=== PATIENT | male | born 1970 | race Caucasian/White ===

== ENCOUNTER → 2016-12-01 | Outpatient (CLI) | payer MEDICAID, OTHER | LOC: PREOP 05:41 | PROVIDERS: ATTEND Surgery | DX: Z01.818 Encounter for other preprocedural examination (principal); K92.1 Melena ==

== ENCOUNTER 2019-06-23 17:49 | Emergency (ER) | payer SELFPAY ==
[~2019-06-23] VITALS: Ht 177 cm; Wt 152.0 kg
--- NOTE | 2019-06-23 18:57 | ED EENT ---
History of Present Illness General Chief Complaint: Dental Problems/Pain Stated Complaint: R SIDE FACIAL PAIN/DENTAL PAIN Nursing Triage Note: Patient ambulatory to [facility] with complaint of right jaw swelling x 1 week. Patient states he was seen at [facility] on Monday and given Amoxicillin. He states he got worse and on Monday returned where they gave him another antibiotic with no changes. Source: patient Exam Limitations: no limitations History of Present Illness Date Seen by Provider: Jun 23, 2019 Time Seen by Provider: 18:57 Allergies and Home Medications Allergies Coded Allergies: No Known Drug Allergies (Unverified , 06/23/19) Past Nouxwvp-Hyasbt-Zfayje Hx Patient Social History Alcohol Use: Denies Use Recreational Drug Use: No Smoking Status: Never a Smoker 2nd Hand Smoke Exposure: No Recent Foreign Travel: No Contact w/Someone Who Travel: No Recent Infectious Disease Expo: No Recent Hopitalizations: No Physical Abuse: No Sexual Abuse: No Mistreated: No Fear: No Seasonal Allergies Seasonal Allergies: No Past Medical History Surgeries: No Respiratory: No Cardiac: No Neurological: No Genitourinary: No Gastrointestinal: No Musculoskeletal: No Endocrine: No HEENT: No Cancer: No Psychosocial: No Integumentary: No Physical Exam Vital Signs Vital Signs - First Documented 06/23/19 18:12 Temp 36.8 Pulse 80 Resp 16 B/P (MAP) 165/105 (125) Pulse Ox 96 O2 Delivery Room Air Height, Weight, BMI Height: '" Weight: lbs. oz. kg; 48.00 BMI Method: Progress/Results/Core Measures Results/Orders Lab Results Laboratory Tests Test 06/23/19 19:24 Range/Units White Blood Count 9.0 4.3-11.0 10^3/uL Red Blood Count 4.89 4.35-5.85 10^6/uL Hemoglobin 15.5 13.3-17.7 G/DL Hematocrit 43 40-54 % Mean Corpuscular Volume 89 80-99 FL Mean Corpuscular Hemoglobin 32 25-34 PG Mean Corpuscular Hemoglobin Concent 36 32-36 G/DL Red Cell Distribution Width 12.9 10.0-14.5 % Platelet Count 288 130-400 10^3/uL Mean Platelet Volume 9.4 7.4-10.4 FL Neutrophils (%) (Auto) 71 42-75 % Lymphocytes (%) (Auto) 16 12-44 % Monocytes (%) (Auto) 9 0-12 % Eosinophils (%) (Auto) 4 0-10 % Basophils (%) (Auto) 0 0-10 % Neutrophils # (Auto) 6.4 1.8-7.8 X 10^3 Lymphocytes # (Auto) 1.5 1.0-4.0 X 10^3 Monocytes # (Auto) 0.8 0.0-1.0 X 10^3 Eosinophils # (Auto) 0.4 H 0.0-0.3 10^3/uL Basophils # (Auto) 0.0 0.0-0.1 10^3/uL Erythrocyte Sedimentation Rate 6 0-30 MM/HR Sodium Level 138 135-145 MMOL/L Potassium Level 3.5 L 3.6-5.0 MMOL/L Chloride Level 105 98-107 MMOL/L Carbon Dioxide Level 21 21-32 MMOL/L Anion Gap 12 5-14 MMOL/L Blood Urea Nitrogen 10 7-18 MG/DL Creatinine 0.99 0.60-1.30 MG/DL Estimat Glomerular Filtration Rate > 60 BUN/Creatinine Ratio 10 Glucose Level 95 70-105 MG/DL Calcium Level 9.1 8.5-10.1 MG/DL Corrected Calcium 8.7 8.5-10.1 MG/DL Total Bilirubin 0.7 0.1-1.0 MG/DL Aspartate Amino Transf (AST/SGOT) 26 5-34 U/L Alanine Aminotransferase (ALT/SGPT) 44 0-55 U/L Alkaline Phosphatase 98 40-136 U/L C-Reactive Protein High Sensitivity 0.48 0.00-0.50 MG/DL Total Protein 7.5 6.4-8.2 GM/DL Albumin 4.5 3.2-4.5 GM/DL My Orders Orders - KATTY WU Ed Iv/Invasive Line Start (06/23/19 19:19) Ketorolac Injection (Toradol Injection) (06/23/19 19:19) Ns Iv 1000 Ml (Sodium Chloride 0.9%) (06/23/19 19:19) Ct Maxillofacial W (06/23/19 19:19) Mumps Antibody Igg & M (06/23/19 19:26) Iohexol Injection (Omnipaque 350 Mg/Ml 1 (06/23/19 19:45) Received Contrast (Hold Metformin- Contr (06/23/19 19:45) Sodium Chloride Flush (Catheter Flush Sy (06/23/19 19:45) Ns (Ivpb) (Sodium Chloride 0.9% Ivpb Bag (06/23/19 19:45) Cbc With Automated Diff (06/23/19 20:13) Comprehensive Metabolic Panel (06/23/19 20:13) Hs C Reactive Protein (06/23/19 20:13) Erythrocyte Sedimentation Rate (06/23/19 20:13) Ceftriaxone For Iv Use (Rocephin For I (06/23/19 20:45) Medications Given in ED Current Medications Medications Dose Ordered Sig/Chuy Route Start Time Stop Time Status Last Admin Dose Admin Ceftriaxone Sodium 1000 mg/ Sterile Water 10 ml @ 200 mls/hr ONCE ONCE IV 06/23/19 20:45 06/23/19 20:47 DC 06/23/19 20:46 200 MLS/HR Iohexol 100 ml ONCE ONCE IV 06/23/19 19:45 06/23/19 19:46 DC 06/23/19 19:42 100 ML Sodium Chloride 10 ml NEEDED PRN IV 06/23/19 19:45 06/23/19 19:42 10 ML Sodium Chloride 100 ml ONCE ONCE IV 06/23/19 19:45 06/23/19 19:46 DC 06/23/19 19:42 80 ML Sodium Chloride 1,000 ml @ 0 mls/hr Q0M ONCE IV 06/23/19 19:19 06/23/19 19:22 DC 06/23/19 19:33 1,000 MLS/HR Vital Signs/I&O 06/23/19 18:12 Temp 36.8 Pulse 80 Resp 16 B/P (MAP) 165/105 (125) Pulse Ox 96 O2 Delivery Room Air Blood Pressure Mean: 125 POS Departure Impression Primary Impression: Acute parotitis Disposition: 01 HOME, SELF-CARE Condition: Improved Departure-Patient Inst. Decision time for Depature: 21:07 Referrals: NO,LOCAL PHYSICIAN (PCP/Family) Primary Care Physician Patient Instructions: Mumps (DC), Salivary Gland Infection Add. Discharge Instructions: All discharge instructions reviewed with patient and/or family. Voiced understanding. Medications as instructed. Continue the clindamycin was prescribed. Tylenol [id number] as directed for pain. Ibuprofen is by mouth every 8 hours as needed for pain. He may use ice packs or warm compresses as needed. Shower daily and foods as instructed. Follow-up with your family pr actitioner for recheck as outpatient. Return to the emergency department for worsened symptoms or any other concerns. Scripts Tramadol HCl (Tramadol HCl) 50 Mg Tablet 50 MG PO Q6H PRN for pain, #14 TAB 0 Refills Prov: KATTY WU 06/23/19 Work/School Note: Local Medical Staff Listing KATTY WU Jun 23, 2019 18:57 POS
[2019-06-23] MEDS ORDERED: KETOROLAC 30 MG/ML VIAL IVP STA (19:19)
[2019-06-23] MEDS ORDERED: NS IV 1000 ML 1,000 ML IV ONE (19:19)
[2019-06-23] MEDS ORDERED: CATHETER FLUSH 10 ML SYR IV PRN (19:45)
[2019-06-23] MEDS ORDERED: HOLD METFORMIN - RECEIVED CONTRAST 20 ML VIAL IV SCH (19:45)
[2019-06-23] MEDS ORDERED: NS 100 ML (IVPB) BAG IV ONE (19:45)
[2019-06-23] MEDS ORDERED: IOHEXOL 350 MG/ML 100 ML (OMNIPAQUE 350) VIAL IV ONE (19:45)
--- NOTE | 2019-06-23 19:57 | Diagnostic Imaging Report ---
PROCEDURE: CT maxillofacial with contrast. TECHNIQUE: After intravenous administration of contrast, axial images were obtained through the face and reformatted into coronal and sagittal planes. Auto Exposure Controls were utilized during the CT exam to meet ALARA standards for radiation dose reduction. INDICATION: Right jaw swelling. COMPARISON: None available. FINDINGS: The right submandibular gland is asymmetrically enlarged with hyperemia present indicative of parotiditis. There is no stone within the parotid duct. Asymmetric thickening of the right platysmas muscle due to inflammation within the right submandibular region. Left parotid gland is normal in appearance. Bilateral submandibular glands are normal. Airway is widely patent. An air-fluid level is present in left maxillary sinus, which can be seen with sinusitis. Patchy mucosal thickening within the bilateral ethmoid air cells is also present. No fracture within the mid face or mandible. No lymphadenopathy in the upper neck. IMPRESSION: 1. Acute parotiditis on the right. No obstructing stone within the parotid duct. Dictated by: Dictated on workstation # [id number]
[2019-06-23 20:19] LABS: BASOPHILS % (AUTO) 0 % (0-10); EOSINOPHILS # (AUTO) 0.4 10^3/uL (0.0-0.3); EOSINOPHILS % (AUTO) 4 % (0-10); HEMATOCRIT 43 % (40-54); HEMOGLOBIN 15.5 G/DL (13.3-17.7); LYMPHOCYTES # (AUTO) 1.5 X 10^3 (1.0-4.0); LYMPHOCYTES % (AUTO) 16 % (12-44); MEAN CORPUSCULAR HEMOGLOBIN 32 PG (25-34); MEAN CORPUSCULAR HGB CONC 36 G/DL (32-36); MEAN CORPUSCULAR VOLUME 89 FL (80-99); MEAN PLATELET VOLUME 9.4 FL (7.4-10.4); MONOCYTES # (AUTO) 0.8 X 10^3 (0.0-1.0); MONOCYTES % (AUTO) 9 % (0-12); NEUTROPHILS # (AUTO) 6.4 X 10^3 (1.8-7.8); NEUTROPHILS % (AUTO) 71 % (42-75); PLATELET COUNT 288 10^3/uL (130-400); RED CELL DISTRIBUTION WIDTH 12.9 % (10.0-14.5)
[2019-06-23 20:30] LABS: ALANINE AMINOTRANSFERASE 44 U/L (0-55); ALBUMIN 4.5 GM/DL (3.2-4.5); ALKALINE PHOSPHATASE 98 U/L (40-136); BILIRUBIN,TOTAL 0.7 MG/DL (0.1-1.0); BUN/CREATININE RATIO 10; CALCIUM 9.1 MG/DL (8.5-10.1); CARBON DIOXIDE 21 MMOL/L (21-32); CHLORIDE 105 MMOL/L (98-107); CREATININE SERUM 0.99 MG/DL (0.60-1.30); GFR ESTIMATED > 60; GLUCOSE 95 MG/DL (70-105); POTASSIUM 3.5 MMOL/L (3.6-5.0); SODIUM 138 MMOL/L (135-145); TOTAL PROTEIN 7.5 GM/DL (6.4-8.2)
[2019-06-23 20:38] LABS: ERYTHROCYTE SEDIMENTATION RATE 6 MM/HR (0-30)
[2019-06-23] MEDS ORDERED: cefTRIAXone FOR IV USE 1,000 MG in WATER (STERILE) FOR INJECTION 10 ML IV ONE (20:45)
[2019-06-23] MEDS ORDERED: TRAM50TA2 PO (21:09)
[2019-06-23 21:20] VITALS: BP 165/105
--- NOTE | 2019-06-24 13:39 | NUR ---
Pt called wanting to know if results for mumps test was back yet.
== END 2019-06-23 21:21 | disposition home or self-care (01) ==
LOC: EDUNIT# 17:49 → ER 17:50
DX: K11.21 Acute sialoadenitis (principal)
CPT/HCPCS: 36415; 70487; 80053; 85025; 85652; 86141; 86735

== ENCOUNTER → 2019-06-26 | Outpatient (CLI) | payer SELFPAY ==
[~2019-06-26] MED LIST: TRAM50TA2 PO
--- NOTE | 2019-06-27 16:25 | NUR ---
received report from Anuja Funes at [facility] that patients PCR test for mumps is negative. Patient and physician notified.
== END ==
LOC: LAB 12:26
PROVIDERS: ATTEND Nurse Practitioner Family
DX: B26.9 Mumps without complication (principal)
CPT/HCPCS: 36415